=== PATIENT | female | born 1955 | race Two or more races ===

== ENCOUNTER 2020-12-30 14:58 | Emergency (ER) | payer OTHER ==
[~2020-12-30] VITALS: Ht 154.9 cm; Wt 56.2 kg
[2020-12-30] MEDS ORDERED: ASPIRIN81 MG PO (15:15)
[2020-12-30] MEDS ORDERED: ATORVASTATIN CA20 MG PO (15:16)
[2020-12-30] MEDS ORDERED: PREMARIN0.45 MG PO (15:17)
[2020-12-30] MEDS ORDERED: DUI500 PO (15:54)
[2020-12-30] MEDS ORDERED: MUPIROCIN15 GM TOP (15:54)
== END 2020-12-30 15:58 | disposition home or self-care (01) ==
LOC: ER 14:58
DX: S50.12XA Contusion of left forearm, initial encounter (principal); L03.114 Cellulitis of left upper limb; W22.8XXA Striking against or struck by other objects, initial encounter; Y93.89 Activity, other specified; Y92.89 Other specified places as the place of occurrence of the external cause; Y99.8 Other external cause status